=== PATIENT | male | born 1940 | race Caucasian/White ===

== ENCOUNTER → 2017-05-01 | Day surgery (SDC) | payer MEDICARE ==
[~2017-05-01] MED LIST: PROPOFOL 500 MG/50 ML BTL IV ONE
--- NOTE | 2017-05-01 13:32 | GIPROC ---
[facility] [address] [facility], [address] EGD PROCEDURE REPORT EXAM DATE: 05/01/2017 PATIENT NAME: Rl Awan MR #: [id number] BIRTHDATE: 1940 ATTENDING: Shanthi Roa MD ORDER #: [id number] CHILD WATCH ATTENDANT: Laura Sanchez RN STATUS: outpatient INDICATIONS: The patient is a 76 yr old male here for an EGD due to iron deficiency anemia PROCEDURE PERFORMED: EGD w/ ablation EGD w/ biopsy MEDICATIONS: None and Per Anesthesia. TOPICAL ANESTHETIC: CONSENT: The patient understands the risks and benefits of the procedure and understands that these risks include, but are not limited to: sedation, allergic reaction, infection, perforation and/or bleeding. Alternative means of evaluation and treatment include, among others: physical exam, x-rays, and/or surgical intervention. The patient elects to proceed with this endoscopic procedure. medical equipment was checked for proper function. Hand hygiene and appropriate measures for infection prevention was taken. After the risks, benefits and alternatives of the procedure were thoroughly explained, Informed consent was verified, confirmed and timeout was successfully executed by the treatment team. The patient was anesthetized with topical anesthesia and the EC-3490Li ([id number]) endoscope was introduced through the mouth and advanced to the second portion of the duodenum. Retroflexed views revealed no abnormalities and Retroflexed views revealed The gastroscope was then slowly withdrawn and removed. ESOPHAGUS: There was [place] Class A esophagitis noted. A biopsy was performed using cold forceps. Sample sent for histology. STOMACH: A medium sized angiodysplastic lesion was found in the gastric antrum. Bipolar (BICAP) cautery with a 10Fr probe was applied to the site(s) for 5 secs using 15 tyler power. Moderate pressure was applied to the cautery site with complete hemostasis achieved. DUODENUM: The duodenal mucosa appeared normal in the bulb and second portion of the duodenum. ADVERSE EVENTS: There were no complications. IMPRESSIONS: 1. There was [place] Class A esophagitis noted; biopsy was performed 2. Angiodysplastic lesion in the gastric antrum; Bipolar (BICAP) cautery with a 10Fr probe was applied to the site(s) for 5 secs; with complete hemostasis achieved 3. Normal duodenal mucosa in the bulb and second portion of the duodenum 4. Retroflexed views revealed no abnormalities 5. Retroflexed views revealed RECOMMENDATIONS: 1. Await biopsy results. Biopsy results will not be ready for 7-10 days. If you don't hear from us in two weeks, call our office for biopsy results. 2. Anti-reflux regimen 3. Continue PPI 4. Avoid NSAIDS PATIENT CONDITION: stable DISPOSITION: Home REPEAT EXAM: Return 1 year EGD pending biopsy results Shanthi Roa MD eSigned: Shanthi Roa MD 05/01/2017 1:31 PM cc: Deshaun Jaime [facility] Laura Jang M.D. PATIENT NAME: Rl Awan MR#: [id number]
--- NOTE | 2017-05-01 13:44 | GIPROC ---
[facility] [address] [facility], [address] COLONOSCOPY PROCEDURE REPORT EXAM DATE: 05/01/2017 PATIENT NAME: Rl Awan MR #: [id number] BIRTHDATE: 1940 ENDOSCOPIST: Shanthi Roa MD ORDER #: [id number] RADIO SURVEY WORKER: Laura Sanchez RN STATUS: outpatient INDICATIONS: The patient is a 76 yr old male here for a colonoscopy due to iron deficiency anemia PROCEDURE PERFORMED: Colonoscopy, diagnostic MEDICATIONS: None and Per Anesthesia. PREP QUALITY: The [place] Bowel Prep Score was Right colon 0, Mid colon 2, and Left colon 2. Total = 4. ESTIMATED BLOOD LOSS: None CONSENT: The patient understands the risks and benefits of the procedure and understands that these risks include, but are not limited to: sedation, allergic reaction, infection, perforation and/or bleeding. Alternative means of evaluation and treatment include, among others: physical exam, x-rays, and/or surgical intervention. The patient elects to proceed with this endoscopic procedure. medical equipment was checked for proper function. Hand hygiene and appropriate measures for infection prevention was taken. After the risks, benefits and alternatives of the procedure were thoroughly explained, Informed consent was verified, confirmed and timeout was successfully executed by the treatment team. A digital exam revealed external hemorrhoids The EC-3490Li ([id number]) endoscope was introduced through the anus and advanced to the cecum, which was identified by both the appendix and ileocecal valve. The instrument was then slowly withdrawn as the colon was fully examined. COLON FINDINGS: Moderate diverticulosis was noted in the sigmoid colon. Retroflexed views revealed internal hemorrhoids and Retroflexed views revealed medium internal hemorrhoids The scope was then completely withdrawn from the patient and the procedure terminated. PROCEDURE WITHDRAWAL TIME:6minutes ADVERSE EVENTS: There were no complications. IMPRESSIONS: 1. Moderate diverticulosis was noted in the sigmoid colon 2. Retroflexed views revealed internal hemorrhoids 3. Retroflexed views revealed medium internal hemorrhoids 4. Revealed external hemorrhoids RECOMMENDATIONS: 1. Continue surveillance 2. Yearly hemoccult 3. No seeds, nuts and popcorn in diet 4. Benefiber 2 tsp daily RECALL: Return 1 year Colonoscopy Shanthi Roa MD eSigned: Shanthi Roa MD 05/01/2017 1:44 PM cc: [facility] and Adia Jang M.D. PATIENT NAME: Rl Awan MR#: [id number]
== END | disposition home or self-care (01) ==
LOC: ESDC 11:34
PROVIDERS: ATTEND Internal Medicine Gastroenterology
DX: D50.9 Iron deficiency anemia, unspecified (principal); K57.90 Diverticulosis of intestine, part unspecified, without perforation or abscess without bleeding; K22.70 Barrett's esophagus without dysplasia; K64.4 Residual hemorrhoidal skin tags; K64.8 Other hemorrhoids; K20.9 Esophagitis, unspecified; K31.819 Angiodysplasia of stomach and duodenum without bleeding
CPT/HCPCS: 88305